=== PATIENT | male | born 2000 | race Caucasian/White ===

== ENCOUNTER 2019-05-02 17:54 | Inpatient (IN) ==
[2019-05-02 19:43] LABS: Basophils # (auto) 0.02 K/uL (0-0.2); Basophils % (auto) 0.2 %; Eosinophils # (auto) 0.02 K/uL (0-0.5); Eosinophils % (auto) 0.2 %; Hematocrit (blood only) 45.1 % (42-52); Hemoglobin 15.6 g/dL (14.0-18.0); Immature Granulocytes # (auto) 0.02 K/uL (0.00-0.02); Immature Granulocytes % (auto) 0.2 %; Lymphocytes # (auto) 1.39 K/uL (1.2-3.4); Lymphocytes % (auto) 14.8 %; Mean Corpuscular Hemoglobin 31.3 pg (25-34); Mean Corpuscular Hgb Conc 34.6 g/dL (32-36); Mean Corpuscular Volume 90.6 fL (80-100); Mean Platelet Volume 8.7 fL (7.4-10.4); Monocytes # (auto) 0.53 K/uL (0.11-0.59); Monocytes % (auto) 5.7 %; Neutrophils # (auto) 7.39 K/uL (1.4-6.5); Neutrophils % (auto) 78.9 %; Platelet Count 353 K/uL (130-400); RDW Coefficient of Variation 13.1 % (11.5-14.5); RDW Standard Deviation 43.1 fL (36.4-46.3); Red Blood Count 4.98 M/uL (4.7-6.1); White Blood Count 9.37 K/uL (4.8-10.8)
[2019-05-02 20:02] LABS: Appearance Urine Clear (Clear); Bacteria Urine Automated Negative (Negative); Bilirubin Urine Negative (Negative); Blood Urine Negative (Negative); Color Urine Dark Yellow; Epithelial Cell Urine Auto 0-5 /lpf (0-5); Glucose Urine UA Negative (Negative); Ketones Urine 2+ (Negative); Leukocyte Esterase Urine Trace (Negative); Nitrite Urine Negative (Negative); Protein Urine Negative (Negative); RBC Urine Automated 0-4 /hpf (0-4); Specific Gravity Urine 1.027 (1.000-1.030); Urobilinogen Urine Negative (Negative); pH Urine 5.5 (4.5-7.5)
[2019-05-02 20:03] LABS: Albumin Level 4.5 gm/dl (3.4-5.0); BUN Creatinine Ratio 15.3 (10-20); Creatinine Clr Calc Pharmacy 102.5 ml/min; Est GFR (African American) 115.2; Est GFR (Non-African American) 99.4; Potassium 3.9 mmol/L (3.5-5.1)
[2019-05-02 20:04] LABS: Acetaminophen < 2 ug/ml (10-30)
[2019-05-02 20:05] LABS: Salicylate < 1.7 mg/dl (2.8-20)
[2019-05-02 20:06] LABS: Amphetamines+Metham, Urine Neg (Neg); Barbiturates, Urine Neg (Neg); Benzodiazepine, Urine Neg (Neg); Cocaine, Urine Neg (Neg); MDMA (Ecstacy), Urine Neg (Neg); Methadone, Urine Neg (Neg); Opiate, Urine Neg (Neg); Phencyclidine, Urine Neg (Neg)
[2019-05-02 20:14] LABS: Albumin Globulin Ratio 1.1 (0.9-2); Bilirubin,Total 0.9 mg/dl (0.2-1); Globulin 4.2 gm/dl (2.5-4.0); Thyroid Stimulating Hormone 0.789 uIu/ml (0.300-4.500); Total Protein 8.7 gm/dl (6.4-8.2)
--- NOTE | 2019-05-02 21:23 | Emergency Department Note ---
Entered by Josiane Bhatt acting as a scribe for Joseph Briggs MD History of Present Illness General Chief complaint: Mental Health Evaluation Stated complaint: MENTAL HEALTH EVALUATION Time Seen by Provider: 05/02/19 18:23 Source: patient and other ([facility]) History of Present Illness Onset (ago): day(s) 2 Location: head (mental health evaluation ) Associated symptoms: + denies other symptoms (diarrhea) and + other (auditory hallucinations, increased anxiety and depression recently, SI, weight loss, feeling hopeless); no cough, no fever/chills and no nausea/vomiting The patient is a 19 year old male who presents to the Emergency Room for a mental health evaluation. The patient was sent here from [facility] today. They state the last time he was seen there was in July 2018 for ADHD. [facility] reports that today the patient was seen for auditory hallucinations and SI (passive) with no intent or plan. The patient reports auditory hallucinations that began 2 days ago and explains that he only hears them when he feels anxious or depressed. He reports feeling more anxious and depressed for the past few days. These voices are those of his roommates and fraternity brothers and he explains that he does not hear them when he feels happy. He also notes that he has a good relationship with his roommates and fraternity brothers and that they are always there to help him with his struggles. Additionally, 1 day ago he reports that he had a panic attack and that the voices of his frat brothers in his head told him to go to the [employer] and "defeat a super villain". At times he states that these voices tell him he is worthless. He also reports a recent hallucination of hearing his roommate whispering about him stating that he should kill himself. Of note, [facility] reports that the patient has been using marijuana and drinking alcohol daily up until about 6 days ago. He has since only been using CBD oil to sleep. The patient it also not on any medications for depression or anxiety. He is here voluntary and [facility] recommends to keep him as a n inpatient. The patient states that he feels hopeless and wants to get help. He states that he does not currently have SI thoughts. Of note, he also reports recent weight loss due to his depression. He denies fever, cough, nausea, vomiting, and diarrhea. The patient offers no additional concerns at this time. Home Medications Home Medications Medication Instructions Recorded Confirmed Type Cbd Oil 1 applic TOPICAL DAILY 05/02/19 05/02/19 History Allergies Allergy/AdvReac Type Severity Reaction Status Date / Time maple syrup Allergy Hives Uncoded 05/02/19 20:03 Past Med/Surg History Medical History Concussion No pertinent past medical history Surgical History No history of previous surgery Family History Family/Other No problems noted. Social History Preferred Language: Lithuanian Communication Ability: Effective Senior Strategy Manager Required: No Beliefs That Will Affect Care: None Feels Safe at Home: Yes Smoking Status: Current some day smoker Tobacco Type: cigarettes ; Review of Systems See HPI for pertinent positives & negatives. and A total of 10 systems reviewed and were otherwise negative Physical Exam Vital Signs Vital Signs - 24 hr 05/02/19 18:02 05/02/19 20:02 Temperature 36.8 C Temperature Source Oral Pulse Rate 79 Pulse Rate [Right Finger] 79 Respiratory Rate 20 20 Respiratory Depth Normal Blood Pressure 132/87 Blood Pressure [Right Arm] 133/87 Blood Pressure Mean 102 Blood Pressure Mean [Right Arm] 102 Blood Pressure Position Sitting Blood Pressure Position [Right Arm] Sitting Pulse Oximetry 99 98 Oxygen Delivery Method Room Air Sepsis Recent Fever Within 48 Hours No Sepsis Action Taken by Nursing No Action Required GENERAL: Awake, alert, well-appearing, in no distress HENT: Normocephalic, atraumatic. Oropharynx unremarkable. Mucous membranes moist. EYES: Normal conjunctiva. Sclera non-icteric. NECK: Supple. No nuchal rigidity. FROM. No JVD. RESPIRATORY: Scant intermittent wheeze, otherwise clear. CARDIAC: Regular rate, normal rhythm. Extremities warm and well perfused. Pulses equal. ABDOMEN: Soft, non-distended. No tenderness to palpation. No rebound or gua rding. No masses. RECTAL: Deferred. MUSCULOSKELETAL: Chest examination reveals no tenderness. The back is symmetrical on inspection without obvious abnormality. There is no CVA tenderness to palpation. No joint edema. LOWER EXTREMITIES: Calves are equal size bilaterally and non-tender. No edema. No discoloration. NEURO: Normal sensorium. No sensory or motor deficits noted. SKIN: No rash or jaundice noted. PSYCH: Positive auditory hallucinations. Sometimes command hallucinations. Intermittent SI. Positive marijuana use. Course Course 1850: Past medical records reviewed. The patient was evaluated in room A03. A complete history and physical exam was performed. 0030: The patient was admitted to [facility]. The patient verbally expressed understanding and agreement of the treatment plan. The patient will be evaluated for further treatment. Administered Medications Hydroxyzine HCl (Vistaril) 50 mg PO HSZ PRN PRN Reason: Insomnia Stop: 06/01/19 22:23 Last Admin: 05/04/19 01:37 Dose: 50 mg Documented by: [id number] Admin: 05/03/19 00:59 Dose: 50 mg Documented by: [id number] Admin: 05/02/19 23:34 Dose: 50 mg Documented by: [id number] Nicotine Polacrilex (Nicorette 2mg) 1 piece MT PRN PRN PRN Reason: cravings Stop: 06/02/19 17:06 Last Admin: 05/03/19 17:44 Dose: 1 piece Documented by: [id number] Risperidone (Risperdal) 0.5 mg PO HS TANK Stop: 06/02/19 21:59 Last Admin: 05/03/19 21:01 Dose: 0.5 mg Documented by: [id number] Risperidone (Risperdal) 0.5 mg PO BID PRN PRN Reason: agitation or psychosis Stop: 06/02/19 10:29 Last Admin: 05/03/19 16:09 Dose: 0.5 mg Documented by: [id number] Discontinued Medications Sertraline HCl (Zoloft) 25 mg PO NOW ONE Stop: 05/03/19 10:26 Last Admin: 05/03/19 11:54 Dose: 25 mg Documented by: [id number] Medical Decision Making Differential Diagnosis Differential diagnosis includes but is not limited to etiologies such as mood disorder, infection, hypoglycemia, electrolyte abnormalities, cardiac sources, intracerebral event, toxicologic, neurologic, as well as others were entertained. Medical Records Attestation: I reviewed the patient's medical records. Home Medications Current Medication List: was personally reviewed by me Laboratory Data Attestation: I reviewed the patient's lab results. Result diagrams: 05/02/19 19:29 05/02/19 19:29 Lab Results 05/02/19 05/02/19 05/02/19 Range/Units 18:20 18:20 19:29 WBC 9.37 (4.8-10.8) K/uL RBC 4.98 (4.7-6.1) M/uL Hgb 15.6 (14.0-18.0) g/dL Hct 45.1 (42-52) % MCV 90.6 (80-100) fL MCH 31.3 (25-34) pg MCHC 34.6 (32-36) g/dL RDW Std Deviation 43.1 (36.4-46.3) fL RDW Coeff of Yara 13.1 (11.5-14.5) % Plt Count 353 (130-400) K/uL MPV 8.7 (7.4-10.4) fL Immature Gran % (Auto) 0.2 % Neut % (Auto) 78.9 % Lymph % (Auto) 14.8 % [place] % (Auto) 5.7 % Eos % (Auto) 0.2 % Baso % (Auto) 0.2 % Immature Gran # (Auto) 0.02 (0.00-0.02) K/uL Neut # (Auto) 7.39 H (1.4-6.5) K/uL Lymph # (Auto) 1.39 (1.2-3.4) K/uL [place] # (Auto) 0.53 (0.11-0.59) K/uL Eos # (Auto) 0.02 (0-0.5) K/uL Baso # (Auto) 0.02 (0-0.2) K/uL Sodium (136-145) mmol/L Potassium (3.5-5.1) mmol/L Chloride (98-107) mmol/L Carbon Dioxide (21-32) mmol/L Anion Gap (3-11) BUN (7-18) mg/dl Creatinine (0.6-1.4) mg/dl Est Cr Clr Drug Dosing ml/min Est GFR ( Amer) Est GFR (Non-Af Amer) BUN/Creatinine Ratio (10-20) Glucose (70-99) mg/dl Calcium (8.5-10.1) mg/dl Total Bilirubin (0.2-1) mg/dl AST (15-37) U/L ALT (12-78) U/L Alkaline Phosphatase (45-117) U/L Total Protein (6.4-8.2) gm/dl Albumin (3.4-5.0) gm/dl Globulin (2.5-4.0) gm/dl Albumin/Globulin Ratio (0.9-2) TSH (0.300-4.500) uIu/ml Urine Color Dark Yellow Urine Appearance Clear (Clear) Urine pH 5.5 (4.5-7.5) Ur Specific [place] 1.027 (1.000-1.030) Urine Protein Negative (Negative) Urine Glucose (UA) Negative (Negative) Urine Ketones 2+ H (Negative) Urine Blood Negative (Negative) Urine Nitrite Negative (Negative) Urine Bilirubin Negative (Negative) Urine Urobilinogen Negative (Negative) Ur Leukocyte Esterase Trace H (Negative) Urine WBC (Auto) 1-5 (0-5) /hpf Urine RBC (Auto) 0-4 (0-4) /hpf U Hyaline Cast (Auto) 1-5 (0-5) /lpf U Epithel Cells (Auto) 0-5 (0-5) /lpf Urine Bacteria (Auto) Negative (Negative) Salicylates (2.8-20) mg/dl Urine Opiates Screen Neg (Neg) Ur Methadone, Qual Neg (Neg) Acetaminophen (10-30) ug/ml Urine Barbiturates Neg (Neg) Ur Phencyclidine (PCP) Neg (Neg) U Amphetamin/Meth Scrn Neg (Neg) MDMA (Ecstasy) Screen Neg (Neg) U Benzodiazepines Scrn Neg (Neg) Ur Cocaine Metabolite Neg (Neg) U Marijuana (THC) Screen Pos H (Neg) Ethyl Alcohol mg/dL (0-3) mg/dl 05/02/19 05/02/19 05/02/19 Range/Units 19:29 19:29 19:29 WBC (4.8-10.8) K/uL RBC (4.7-6.1) M/uL Hgb (14.0-18.0) g/dL Hct (42-52) % MCV (80-100) fL MCH (25-34) pg MCHC (32-36) g/dL RDW Std Deviation (36.4-46.3) fL RDW Coeff of Yara (11.5-14.5) % Plt Count (130-400) K/uL MPV (7.4-10.4) fL Immature Gran % (Auto) % Neut % (Auto) % Lymph % (Auto) % [place] % (Auto) % Eos % (Auto) % Baso % (Auto) % Immature Gran # (Auto) (0.00-0.02) K/uL Neut # (Auto) (1.4-6.5) K/uL Lymph # (Auto) (1.2-3.4) K/uL [place] # (Auto) (0.11-0.59) K/uL Eos # (Auto) (0-0.5) K/uL Baso # (Auto) (0-0.2) K/uL Sodium 137 (136-145) mmol/L Potassium 3.9 (3.5-5.1) mmol/L Chloride 104 (98-107) mmol/L Carbon Dioxide 26 (21-32) mmol/L Anion Gap 7.0 (3-11) BUN 16 (7-18) mg/dl Creatinine 1.07 (0.6-1.4) mg/dl Est Cr Clr Drug Dosing 102.5 ml/min Est GFR ( Amer) 115.2 Est GFR (Non-Af Amer) 99.4 BUN/Creatinine Ratio 15.3 (10-20) Glucose 94 (70-99) mg/dl Calcium 10.0 (8.5-10.1) mg/dl Total Bilirubin 0.9 (0.2-1) mg/dl AST 21 (15-37) U/L ALT 37 (12-78) U/L Alkaline Phosphatase 78 (45-117) U/L Total Protein 8.7 H (6.4-8.2) gm/dl Albumin 4.5 (3.4-5.0) gm/dl Globulin 4.2 H (2.5-4.0) gm/dl Albumin/Globulin Ratio 1.1 (0.9-2) TSH 0.789 (0.300-4.500) uIu/ml Urine Color Urine Appearance (Clear) Urine pH (4.5-7.5) Ur Specific [place] (1.000-1.030) Urine Protein (Negative) Urine Glucose (UA) (Negative) Urine Ketones (Negative) Urine Blood (Negative) Urine Nitrite (Negative) Urine Bilirubin (Negative) Urine Urobilinogen (Negative) Ur Leukocyte Esterase (Negative) Urine WBC (Auto) (0-5) /hpf Urine RBC (Auto) (0-4) /hpf U Hyaline Cast (Auto) (0-5) /lpf U Epithel Cells (Auto) (0-5) /lpf Urine Bacteria (Auto) (Negative) Salicylates < 1.7 L (2.8-20) mg/dl Urine Opiates Screen (Neg) Ur Methadone, Qual (Neg) Acetaminophen < 2 L (10-30) ug/ml Urine Barbiturates (Neg) Ur Phencyclidine (PCP) (Neg) U Amphetamin/Meth Scrn (Neg) MDMA (Ecstasy) Screen (Neg) U Benzodiazepines Scrn (Neg) Ur Cocaine Metabolite (Neg) U Marijuana (THC) Screen (Neg) Ethyl Alcohol mg/dL < 3.0 (0-3) mg/dl Blood Pressure Blood Pressure Findings: Elevated blood pressure Blood Pressure Disposition: elevated BP felt to be situational MDM Narrative The patient is a pleasant 19-year-old gentleman presents emergency department referred from [facility] on campus for auditory hallucinations which have been new over the past several days in the setting of marijuana use per HPI. On arrival the patient is in no acute distress, afebrile stable vital signs. The patient reports feeling increasingly anxious and depressed recently and reports when he is feeling most down then he hears the voices which have told him to hurt himself and have disparaged him. He is willing for voluntary admission. His mother is traveling from [facility]. WBC, H/H and platelets within normal limits. Chemistry without acidosis. Electrolytes and LFTs unremarkable. TSH within normal limits. UA negative for infection. Drug screen is positive for marijuana consistent with the patient's report of use marijuana use. Patient is medically cleared. Will proceed with referral for inpatient admission. Patient accepted to . 201 signed. Impression & Plan Anxiety, Depression, Auditory hallucinations, Suicide ideation Discharge Plan Visit Data *Final* Discharge Date/Time: 05/02/19 22:47 Chief Complaint: Mental Health Evaluation Stated Complaint: MENTAL HEALTH EVALUATION ED Provider: Joseph Briggs Discharge Problem: Anxiety, Depression, Auditory hallucinations, Suicide ideation Patient Disposition: Admitted As Inpatient Discharge Instructions Interventions: ED Discharge Assessment Last Done: 05/02/19 22:47 Discharge Problem: Depression Qualifiers: Depression Type: unspecified Qualified Code(s): F32.9 - Major depressive disorder, single episode, unspecified The scribe's documentation has been prepared under my direction and personally reviewed by me in its entirety. I confirm that the note above accurately reflects all work, treatment, procedures, and medical decision making performed by me.
[2019-05-02] MEDS ORDERED: ACETAMINOPHEN 325 MG TAB PO PRN (22:24)
[2019-05-02] MEDS ORDERED: BISMUTH SUBSALICYLATE PER ML OMNICELL CHARGE PO PRN (22:24)
[2019-05-02] MEDS ORDERED: MAGNESIUM HYDROXIDE SUSP 30 ML UDC PO PRN (22:24)
[2019-05-02] MEDS ORDERED: SODIUM CHLORIDE 0.65% NA SOLN 45 ML (OCEAN) PRN (22:24)
[2019-05-02] MEDS ORDERED: ALUMINUM/MAGNESIUM SUSP 30 ML UDC PO PRN (22:24)
[2019-05-03] MEDS ORDERED: risperiDONE 0.5 MG TABLET PO PRN (10:25)
[2019-05-03] MEDS ORDERED: SERTRALINE HCL 50 MG TABLET PO ONE (10:25)
--- NOTE | 2019-05-03 10:33 | History & Physical ---
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 He is distressed by these thoughts and has quite a bit of intact reality testing and yet feels scared that they have worsened over the prior 2 days. He does have concurrent binge drinking I do not believe he is at risk for significant withdrawal but will put him on every shift vitals for sake of completeness. He declines nicotine replacement at this time as he does not smoke consistently. We did discuss his marijuana use that the THC could worsen his thought confusion and we recommended that he abstain. He is open to discussion of behavioral health treatment to include therapy medications in combination. At the time of my seeing him this morning he was not able to reliably report if there were evidence of elevated or mixed states denying obvious episodes however he does have a father with bipolar disorder and so we will need to monitor as we treat. I will start a combination of medications sertraline 25 mg today advancing to 50 mg p.o. daily thereafter to target depression and anxiety that are longstanding. Further I will start Risperdal 0.5 mg p.o. nightly tonight with 0.5 p.o. twice daily as needed agitation or psychosis.I discussed the risks benefits side effects and alternatives with the patient today who did seem to be able to appreciate this information and stated he understood the need to watch for activation with the sertraline and that the goal would be to try these medicines and see how he does and if he has side effects that they can be adjusted. He clarified "my dad has had to try many medications until he found what worked and I am willing to do what it takes to feel better." (1) Anxiety: (2) Depression: Depression Type: unspecified Qualified Code(s): F32.9 - Major depressive disorder, single episode, unspecified Risk Factors Assessment Male: Yes Do You Have Access To A Gun?: No Health Problems: No Mental Health Diagnoses: Yes Substance Use Disorders: Yes Previous Attempt: No Family History of Suicide: Yes Previous Psychiatric Hospitalization: No Hopelessness: Yes Smoker: Yes Protective Factors Assessment Holiness Beliefs: No : No Responsible for Young Children: No Employed: No Supportive Family: Yes Psychiatric History Identifying Data JAY JAY KESSLER is a 19-year-old M who is a sophopmore Communications major at [employer] who lives in an off campus apartments with roommates who reports a h/o anxiety and depression who was admitted for reporting distress with Auditory hallucinations from frat brothers, and delusional beleif he is a superhero needing to fight villians in the last few days on top of longstanding depression and anxiety, and passive SI. He was admitted on 05/02/19 22:24 on a 201 voluntarycommitment. Chief Complaint "I knew something was wrong and I was scared". History of Present Illness The patient is a 19-year-old single white male who was a [employer] student in [employer] who is presently in his third semester. He presented to counseling and psychological services on May 02, 2018 reporting both auditory hallucinations and delusional belief prompting the recommendation that he come to the emergency room and he was agreeable after evaluation in the ER for admission. This history is taken collectively from the documented ER history, case management history, discussion with behavioral health nursing and interview with the patient today on the inpatient unit. He states he has a lifelong history of anxiety and depression that I "never opened up to anybody about." He states he has significant social anxiety and when he is talking with people his heart will flutter he will flush have sweating and a sense of impending doom and this is been going on for some time. 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 However he endured social interactions with great distress. He states he has always been somebody to worry and ask a lot of questions and seek reassurance that he is doing things right. He states he worries about future and feels his "life collapsed" recently. He has difficulty being sustained about what he means but agrees it has to do with the symptoms reported below. In addition to this longstanding anxiety he states he began to have depression probably around the first semester of his college career which was fall 2017. He states that he did poorly in his classes and was just "enjoying things such as videogames going to parties and doing the things he liked." He did very poorly his first semester and believes he started to feel lower. He came back to [facility] in spring 2018 and presented to counseling and psychological services for evaluation of ADHD. He was referred to testing and saw a psychiatrist (name unknown possibly Dr. Veliz) in the [place] area and was diagnosed instead with anxiety and depression. He states he was recommended to follow-up with a therapist with the she did for a few sessions "but it was not helpful, probably because I did not open up." He states he returned to [employer] te Fall 2018 and pledged to fraternity and states "it was the best thing I ever did." He states however though he is also simultaneously has been depressed. He reports over the last year and a half difficulty falling asleep at night not able to fall asleep will often watch 1-2 movies and fell asleep for some time in the late morning and then have trouble rising. He cannot quantify the degree of sleep but states that 6 hours or less. He denies being energized or having grandiosity or flight of ideas or loosening of associations he denies being more social or more talkative or having impulsive behavior such as increased sexuality or increased spending. He does state that at times he feels tired and poor concentration low appetite, hopeless helpless and worthless and has had passive suicidal ideations such as "what would people think if I was ." He notes over the last semester he has lost significant weight, and that in thelast 2 weeks he has not been doing his laundry, and feels even more disorganized that his usual self. He states during his college career he has been binge drinking somewhere between 1-2 nights on an average week up to 3 nights now that he is joined a fraternity where he will binge drink 8+ beers per occasion and has blacked out quite commonly. He does not have any legal or social ramifications that he knows of but today is penitent stating "I know I does not help me." He additionally endorses marijuana use starting in high school and increasing to daily use while in college. His mother found out in fall 2017 and he stopped MJ for 4 months and then resumed. He has been smoking multiple times a day over the last month prior to admission "it is the only thing that helps me." In discussing his thoughts he reports that in the last few weeks he has heard some mumbling which he thoughts was outside and has been vaguely aware of what he now realizes are voices in his mind. In the last 2 days these have escalated to feeling like his roommates and fraternity brothers may be hearing his thoughts and that he may know their thoughts. They have been saying things like "defeat the super villain" and this makes him feel anxious. He states that he believes his roommate may have said in a whisper to kill himself. And yesterday believed that he was a superhero fighting villians and was told to go to a specific room in the fraternity and then was scared realizing on some level that this was not true. He presented to [facility] for help. He states last night he thought he heard the nurse tell another nurse that he is a superhero and "how will we tell him," and yet is able to reality test that "I know that these are not true thoughts" denying beleif that he is a superhero. He has some "whispers" today of AH, but denies other IOR, TI/TB or command hallucinations. He is voluntary to take medications, release prior records and even asserts that perhaps getting further medication history from his father (who has bipolar) may help the patient and staff know what best to use in treatment. He denies SI/HI, intention or plan here on the unit but states he still feels scared and distressed that this has happened to him and he is worried about what this maight mean regarding diagnosis. Remainder of Psych ROS: denies violence toward self or others now or in the past denies s/sx of OCD, agoraphobia. denies h/o trauma or s/sx of PTSD denies s/sx of ODD, or CD, did have discplinary issues in school for disruptive behavior in pre-school and onward e.g. talking out of turn, and reports lonstanding being disorganized with his things which frustrates his relationship wtih his mother who is highly organized he denies s/sx of eating disorder behavior. Past Psychiatric History Previous Psych History: [facility] 07/2017 inquiring about ADHD, referred to psychiatrist Dr Martin? in [facility] area was dx as anxiety and depression referred to therapy went for a few sessions but "did not open up to them" and so of little help No prior hospitatalizations, no SA, no SIB, no medications Current Psychiatric Diagnosis: No prior mental health diagnosis Do You Have Access To A Gun?: No Describe Attempts in the Past: No prior attempts Past Head Trauma/Neuro History History of Concussion/Seizure: Yes sophomore year of HS in baseball, no LOC, but was dazed and went to some sort of "rehab" for post concussion, denies other head injuries, no seizures Allergies Allergy/AdvReac Type Severity Reaction Status Date / Time maple syrup Allergy Hives Uncoded 05/02/19 20:03 Home Medications Home Medications Medication Instructions Recorded Confirmed Type Cbd Oil 1 applic TOPICAL DAILY 05/02/19 05/02/19 History Family History Family History of: Bipolar Family Mental Health History Comment: Patient reports father has bipolar and h/o nicotine Dep 1/2 brother has opiate addiction paternal cousin completed suicide (not well known to patient) Alcohol History Hx of Alcohol Use Over the Past 12 Months: Yes (stopped drinking alcohol 6 days ago) AUDIT Total Score: 13 binge drinking 1-3 nights a week during semesters at [employer] Fall 2017 to present, 8+ drinks, + LION, denies legal or social consequences, no h/o withdrawal Smoking Use Have You Smoked or Used Tobacco Products in the Last 30 Days: Yes tobacco type: cigarettes Smoking Status: Current some day smoker Substance History Hx of Prescription Med Misuse Over the Past 12 Months: No Hx of Over the Counter Med Misuse Over the Past 12 Months: Yes (using CBD recently in addition to MJ, last use 05/01/19) Hx of Inhalent Misuse Over the Past 12 Months: No Hx of Organic Substance Use Over the Past 12 Months: Yes (Marijuana - last use 24 hours ago. daily for 6+ months, using 2 years,) Hx of Illegal Substances/Street Drug Use Over Past 12 Months: No Problems as a Result of Past Substance Use: None Identified Personal History Living Arrangements: Apartment (with college roommates) Childhood: B/R to intact union, he has half siblings brother and sister who are older. He lived with mother and father until 8yo when they . Lived with mother with frequent visitation with Dad. Good relationship with Dad, fair relationship with mother meaning she is supportive but they have adult child transitional tensions as they disagree about his decisions at times. He graduated HS in 2018 states at times he would cheat copying homework on cheat on tests and did fair to good in school. He then did poorly at [employer] first semester did not do his school work and did social/recreational things. Did a little better Spring 2018 but still not great. Fall 2017 he states he is doing "poorly" getting 2 B minueses, 1 C, and 1 F. He identifies as straight but is sad that although he wishes for a relationship "it has never worked out for me." Beliefs That Will Affect Care: None Current Legal Problems: No Hx Legal Problems: No Hx Traumatic Life Events: No Patient History Medical History (Updated 05/03/19 @ 10:52 by Renae Hoffmann MD) Concussion No pertinent past medical history Surgical History No history of previous surgery Family History Family/Other No problems noted. Social History Preferred Language: Ethiopian Communication Ability: Effective Artist Scientific Required: No Beliefs That Will Affect Care: None Feels Safe at Home: Yes Smoking Status: Current some day smoker Tobacco Type: cigarettes ; Review of Systems Review of Systems: Denies physical symptoms on 10 system ROS Physical Exam Mental Examination: See physical exam from Dr Genevieve Briggs on 05/02/18 that has been reviewed and is accepted for the purposes of this H&P Admission Note. Psychiatric: Orientation: alert and oriented x 3 woken from sleep, sits in bed in hospital clothes hair is dissheveled but he appears clean, and he is not behind on hygiene (e.g. no facial hair, nails are not long, no odor, etc) Eye Contact: good eye contact Motor Behavior: no abnormal motor movements he does put his face in his hands at times and gesture when sharing how nervous and poorly he has felt the last few days, earnest in communicating Speech: normal rate/rhythm/volume of speech not pressured Affect: + anxious affect and + blunted affect Mood: + anxious mood Thought Process: goal directed thought process and linear/logical thought process he is able to reality test but reports ongoing AH today that are less than what he was experieing in the 2 days prior to admission He denies feeling paranoid here, although he had IOR, TI/TB he denies that now and denies command hallucinations passive SI Hallucinations: + auditory hallucinations; no visual hallucinations and no tactile hallucinations Cognition: recent memory grossly intact Estimated Intelligence: average estimated intelligence Vital Signs (Past 24 Hours): Last Vital Signs Temp 36.5 C 05/03/19 06:45 Pulse 67 05/03/19 06:47 Resp 16 05/03/19 06:45 BP 121/80 05/03/19 06:47 Pulse Ox 99 05/02/19 22:39 Results & Data Laboratory Results Laboratory Results - last 24 hr 05/02/19 05/02/19 05/02/19 18:20 18:20 18:20 WBC RBC Hgb Hct MCV MCH MCHC RDW Std Deviation RDW Coeff of Yara Plt Count MPV Immature Gran % (Auto) Neut % (Auto) Lymph % (Auto) [place] % (Auto) Eos % (Auto) Baso % (Auto) Immature Gran # (Auto) Neut # (Auto) Lymph # (Auto) [place] # (Auto) Eos # (Auto) Baso # (Auto) Sodium Potassium Chloride Carbon Dioxide Anion Gap BUN Creatinine Est Cr Clr Drug Dosing Est GFR ( Amer) Est GFR (Non-Af Amer) BUN/Creatinine Ratio Glucose Calcium Total Bilirubin AST ALT Alkaline Phosphatase Total Protein Albumin Globulin Albumin/Globulin Ratio TSH Urine Color Dark Yellow Urine Appearance Clear Urine pH 5.5 Ur Specific [place] 1.027 Urine Protein Negative Urine Glucose (UA) Negative Urine Ketones 2+ H Urine Blood Negative Urine Nitrite Negative Urine Bilirubin Negative Urine Urobilinogen Negative Ur Leukocyte Esterase Trace H Urine WBC (Auto) 1-5 Urine RBC (Auto) 0-4 U Hyaline Cast (Auto) 1-5 U Epithel Cells (Auto) 0-5 Urine Bacteria (Auto) Negative Salicylates Urine Opiates Screen Neg Ur Methadone, Qual Neg Acetaminophen Urine Barbiturates Neg Ur Phencyclidine (PCP) Neg U Amphetamin/Meth Scrn Neg MDMA (Ecstasy) Screen Neg U Benzodiazepines Scrn Neg Ur Cocaine Metabolite Neg U Marijuana (THC) Screen Pos H U Marijuana THC Carboxy Pending Drug Screen Comment Pending Ethyl Alcohol mg/dL 05/02/19 05/02/19 05/02/19 19:29 19:29 19:29 WBC 9.37 RBC 4.98 Hgb 15.6 Hct 45.1 MCV 90.6 MCH 31.3 MCHC 34.6 RDW Std Deviation 43.1 RDW Coeff of Yara 13.1 Plt Count 353 MPV 8.7 Immature Gran % (Auto) 0.2 Neut % (Auto) 78.9 Lymph % (Auto) 14.8 [place] % (Auto) 5.7 Eos % (Auto) 0.2 Baso % (Auto) 0.2 Immature Gran # (Auto) 0.02 Neut # (Auto) 7.39 H Lymph # (Auto) 1.39 [place] # (Auto) 0.53 Eos # (Auto) 0.02 Baso # (Auto) 0.02 Sodium 137 Potassium 3.9 Chloride 104 Carbon Dioxide 26 Anion Gap 7.0 BUN 16 Creatinine 1.07 Est Cr Clr Drug Dosing 102.5 Est GFR ( Amer) 115.2 Est GFR (Non-Af Amer) 99.4 BUN/Creatinine Ratio 15.3 Glucose 94 Calcium 10.0 Total Bilirubin 0.9 AST 21 ALT 37 Alkaline Phosphatase 78 Total Protein 8.7 H Albumin 4.5 Globulin 4.2 H Albumin/Globulin Ratio 1.1 TSH 0.789 Urine Color Urine Appearance Urine pH Ur Specific [place] Urine Protein Urine Glucose (UA) Urine Ketones Urine Blood Urine Nitrite Urine Bilirubin Urine Urobilinogen Ur Leukocyte Esterase Urine WBC (Auto) Urine RBC (Auto) U Hyaline Cast (Auto) U Epithel Cells (Auto) Urine Bacteria (Auto) Salicylates < 1.7 L Urine Opiates Screen Ur Methadone, Qual Acetaminophen < 2 L Urine Barbiturates Ur Phencyclidine (PCP) U Amphetamin/Meth Scrn MDMA (Ecstasy) Screen U Benzodiazepines Scrn Ur Cocaine Metabolite U Marijuana (THC) Screen U Marijuana THC Carboxy Drug Screen Comment Ethyl Alcohol mg/dL 05/02/19 19:29 WBC RBC Hgb Hct MCV MCH MCHC RDW Std Deviation RDW Coeff of Yara Plt Count MPV Immature Gran % (Auto) Neut % (Auto) Lymph % (Auto) [place] % (Auto) Eos % (Auto) Baso % (Auto) Immature Gran # (Auto) Neut # (Auto) Lymph # (Auto) [place] # (Auto) Eos # (Auto) Baso # (Auto) Sodium Potassium Chloride Carbon Dioxide Anion Gap BUN Creatinine Est Cr Clr Drug Dosing Est GFR ( Amer) Est GFR (Non-Af Amer) BUN/Creatinine Ratio Glucose Calcium Total Bilirubin AST ALT Alkaline Phosphatase Total Protein Albumin Globulin Albumin/Globulin Ratio TSH Urine Color Urine Appearance Urine pH Ur Specific [place] Urine Protein Urine Glucose (UA) Urine Ketones Urine Blood Urine Nitrite Urine Bilirubin Urine Urobilinogen Ur Leukocyte Esterase Urine WBC (Auto) Urine RBC (Auto) U Hyaline Cast (Auto) U Epithel Cells (Auto) Urine Bacteria (Auto) Salicylates Urine Opiates Screen Ur Methadone, Qual Acetaminophen Urine Barbiturates Ur Phencyclidine (PCP) U Amphetamin/Meth Scrn MDMA (Ecstasy) Screen U Benzodiazepines Scrn Ur Cocaine Metabolite U Marijuana (THC) Screen U Marijuana THC Carboxy Drug Screen Comment Ethyl Alcohol mg/dL < 3.0 Current Inpatient Medications Current Inpatient Medications: Current Inpatient Medications Acetaminophen (Tylenol) 650 mg PO Q4H PRN PRN Reason: Headache or Minor Fever Stop: 06/01/19 22:23 Al Hydrox/Mg Hydrox/Simethicone (Maalox) 30 ml PO Q4H PRN PRN Reason: GI Upset Stop: 06/01/19 22:23 Bismuth Subsalicylate (Kaopectate) 15 ml PO PRN PRN PRN Reason: Loose Stool Stop: 06/01/19 22:23 Hydroxyzine HCl (Vistaril) 50 mg PO HSZ PRN PRN Reason: Insomnia Stop: 06/01/19 22:23 Last Admin: 05/03/19 00:59 Dose: 50 mg Documented by: Hydroxyzine HCl (Vistaril) 25 mg PO Q4H PRN PRN Reason: Anxiety Stop: 06/01/19 22:23 Magnesium Hydroxide (Milk Of Magnesia) 30 ml PO DAILY PRN PRN Reason: Constipation Stop: 06/01/19 22:23 Risperidone (Risperdal) 0.5 mg PO HS TANK Stop: 06/02/19 21:59 Risperidone (Risperdal) 0.5 mg PO BID PRN PRN Reason: agitation or psychosis Stop: 06/02/19 10:29 Sertraline HCl (Zoloft) 50 mg PO QAM TANK Stop: 06/03/19 08:59 Sertraline HCl (Zoloft) 25 mg PO NOW ONE Stop: 05/03/19 10:26 Sodium Chloride ([place] Nasal) 1 - 2 sprays NA PRN PRN PRN Reason: Nasal Dryness/Congestion Stop: 06/01/19 22:23
[2019-05-03] MEDS: NICOTINE POLACRILEX 2 MG GUM MT PRN (17:44)
[2019-05-03] MEDS ORDERED: risperiDONE 0.5 MG TABLET PO SCH (22:00)
--- NOTE | 2019-05-04 07:21 | Psychiatric Progress Note ---
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 He also reported binge drinking and regular THC use. He is open to discussion of behavioral health treatment to include therapy medications in combination. He did not endorse evidence of elevated or mixed states, however he does have a father with bipolar disorder and so we will need to monitor as we treat. He has been started on sertraline and risperidone. He has not yet been able to tolerate groups or a family meeting, but is improving and approaching that point in his treatment. Inpatient treatment is medically necessary due to the severity of his symptoms. (1) Depression: 05/03 - presents for combination of anxiety, depression, and psychotic symptoms to include auditory hallucinations ideas of reference, thought insertion and thought broadcasting with belief that he has a superhero and fighting villains. He is distressed by these thoughts and has quite a bit of intact reality testing and yet feels scared that they have worsened over the prior 2 days. He does have concurrent binge drinking I do not believe he is at risk for significant withdrawal but will put him on every shift vitals for sake of completeness. He declines nicotine replacement at this time as he does not smoke consistently. We did discuss his marijuana use that the THC could worsen his thought confusion and we recommended that he abstain. He is open to discussion of behavioral health treatment to include therapy medications in combination. At the time of my seeing him this morning he was not able to reliably report if there were evidence of elevated or mixed states denying obvious episodes however he does have a father with bipolar disorder and so we will need to monitor as we treat. I will start a combination of medications sertraline 25 mg today advancing to 50 mg p.o. daily thereafter to target depression and anxiety that are longstanding. Further I will start Risperdal 0.5 mg p.o. nightly tonight with 0.5 p.o. twice daily as needed agitation or psychosis.I discussed the risks, benefits, side effects and alternatives with the patient today who did seem to be able to appreciate this information and stated he understood the need to watch for activation with the sertraline and that the goal would be to try these medicines and see how he does and if he has side effects that they can be adjusted. He clarified "my dad has had to try many medications until he found what worked and I am willing to do what it takes to feel better." 05/04 - Requiring risperidone prn, still psychotic, restless, and agitated. Will increase risperidone to 1mg bid, and order fasting labs for tomorrow. -May attend groups once able to participate appropriately. -Explore family meeting. Present on Admission?: Yes (2) Anxiety: 05/03 - SSRI as above, groups and therapy, refer for OP care. Present on Admission?: Yes (3) Cannabis abuse: 05/03 - Discussed marijuana use and that the THC could worsen his thought confusion and we recommended that he abstain. He is open to discussion of behavioral health treatment to include therapy and medications in combination. 05/04 -discussed risks of alcohol and THC use at length, including unmasking psychotic symptoms/primary thought disorder with use of hallucinogens. Reviewed recommendations for abstinence, which patient is stating agreement with. Present on Admission?: Yes Risk Factors Assessment Male: Yes Do You Have Access To A Gun?: No Health Problems: No Mental Health Diagnoses: Yes Substance Use Disorders: Yes Previous Attempt: No Family History of Suicide: Yes Previous Psychiatric Hospitalization: No Hopelessness: Yes Smoker: Yes Protective Factors Assessment [employer] Beliefs: No : No Responsible for Young Children: No Employed: No Supportive Family: Yes Interval History Identifying Information JAY JAY KESSLER is a 19-year-old M who is a sophomore Communications major at [employer] who lives in an off campus apartments with roommates who reports a h/o anxiety and depression who was admitted for reporting distress with Auditory hallucinations from frat brothers, and delusional belief he is a superhero needing to fight villains on top of longstanding depression and anxiety, and passive SI. He was admitted on 05/02/19 22:24 on a 201 voluntary commitment. Chief Complaint "Great". Review of Systems Sleep Information Total Hours of Sleep: 5.5 Meal Information Percent Meal Consumed - Breakfast: 0 Percent Meal Consumed - Lunch: 100 Percent Meal Consumed - Dinner: 80 Nutrition Comment: pt. allowed to sleep. Subjective Subjective Patient was seen & assessed and interval progress reviewed with nursing and social work. Staff report he required risperidone prn for agitation, restlessne ss, and racing thoughts. His mother and aunt visited. He has not been appropriate for groups or a family meeting, and has been isolating in his room. On my assessment, the patient reports his mood has improved, "the depression is gone, but I am anxious, really anxious." He endorses sensation of his heart racing and "a general sense of anxiety." He states he is struggled with this for several years, and his anxiety is triggered by social situations, and currently exacerbated by nicotine withdrawal. States he smokes variable amounts of cigarettes, and also vapes and chews. Nicotine gum has been helpful. His auditory hallucinations have decreased but are still present, and he describes his thoughts as racing, "scrambled, I hear myself in the third person." Appetite has improved from admission, he continues to struggle with sleep difficulties. States he has tried diphenhydramine and hydroxyzine without benefit, and that sleep is chronically poor. Discussed the role of substance us e, and he indicates willingness to abstain from substances at least in the immediate discharge period. Discussed the differential diagnosis, and he indicates that he is fearful of having a primary thought disorder. Physical Exam Psychiatric Orientation: alert and cooperative Apperance: appropriately dressed, appropriately groomed and appeared stated age Eye Contact: good eye contact Motor Behavior: steady gait and station and + psychomotor agitation (Restlessness) Speech: normal rate/rhythm/volume of speech Slightly loud at times Affect: + anxious affect "Better." Thought Process: goal directed thought process Thought Content: reality based without delusions Suicidal Thoughts: denies suicidal thoughts Homicidal Thoughts: denies homicidal thoughts Hallucinations: + auditory hallucinations; no visual hallucinations Cognition: recent memory grossly intact, attention grossly intact and language grossly intact Insight: + fair insight Judgement: + fair judgement Vital Signs (Past 24 Hours) Last Vital Signs Temp 36.4 C L 05/04/19 06:36 Pulse 80 05/04/19 06:36 Resp 16 05/04/19 06:36 BP 138/86 05/04/19 06:36 Pulse Ox 99 05/02/19 22:39 Results & Data Current Inpatient Medications Current Inpatient Medications: Current Inpatient Medications Acetaminophen (Tylenol) 650 mg PO Q4H PRN PRN Reason: Headache or Minor Fever Stop: 06/01/19 22:23 Al Hydrox/Mg Hydrox/Simethicone (Maalox) 30 ml PO Q4H PRN PRN Reason: GI Upset Stop: 06/01/19 22:23 Bismuth Subsalicylate (Kaopectate) 15 ml PO PRN PRN PRN Reason: Loose Stool Stop: 06/01/19 22:23 Hydroxyzine HCl (Vistaril) 50 mg PO HSZ PRN PRN Reason: Insomnia Stop: 06/01/19 22:23 Last Admin: 05/04/19 01:37 Dose: 50 mg Documented by: Hydroxyzine HCl (Vistaril) 25 mg PO Q4H PRN PRN Reason: Anxiety Stop: 06/01/19 22:23 Magnesium Hydroxide (Milk Of Magnesia) 30 ml PO DAILY PRN PRN Reason: Constipation Stop: 06/01/19 22:23 Nicotine Polacrilex (Nicorette 2mg) 1 piece MT PRN PRN PRN Reason: cravings Stop: 06/02/19 17:06 Last Admin: 05/03/19 17:44 Dose: 1 piece Documented by: Risperidone (Risperdal) 0.5 mg PO HS TANK Stop: 06/02/19 21:59 Last Admin: 05/03/19 21:01 Dose: 0.5 mg Documented by: Risperidone (Risperdal) 0.5 mg PO BID PRN PRN Reason: agitation or psychosis Stop: 06/02/19 10:29 Last Admin: 05/03/19 16:09 Dose: 0.5 mg Documented by: Sertraline HCl (Zoloft) 50 mg PO QAM TANK Stop: 06/03/19 08:59 Sodium Chloride ([place] Nasal) 1 - 2 sprays NA PRN PRN PRN Reason: Nasal Dryness/Congestion Stop: 06/01/19 22:23 Mental Health & Subst Abuse Tx Therapist Name of Therapist: None - per mother he was suppose to see therapist and "lied about it." Product Safety Head Name of Product Safety Head: Antonella Rainey referred from [facility] Post Discharge Appointments Primary Care Physician Name Of Family Doctor: Dr. Michele (1) Depression Active/Remission status: currently active Depression Type: major depressive disorder Major depression episode severity: severe Major depression recurrence: unspecified whether recurrent Psychotic features: with psychotic features Qualified Code(s): F32.3 - Major depressive disorder, single episode, severe with psychotic features
[2019-05-04] MEDS ORDERED: risperiDONE 1 MG TABLET PO PRN (09:19)
[2019-05-04] MEDS: SERTRALINE HCL 50 MG TABLET PO SCH (09:36)
[2019-05-04] MEDS: NICOTINE POLACRILEX 2 MG GUM MT PRN ×2 (10:12→20:38)
[2019-05-04] MEDS: risperiDONE 1 MG TABLET PO SCH (21:25)
[2019-05-05 08:31] LABS: Glucose Fasting 88 mg/dl (70-99)
[2019-05-05 08:37] LABS: Chol HDL Ratio 3; Cholesterol 123 mg/dl (0-200); HDL Cholesterol 41 mg/dl; LDL Cholesterol Calculated 68 mg/dl; Triglycerides 72 mg/dl (0-150); VLDL Cholesterol 14 mg/dl
[2019-05-05] MEDS: risperiDONE 1 MG TABLET PO SCH ×2 (10:32→22:20)
[2019-05-05] MEDS: SERTRALINE HCL 50 MG TABLET PO SCH (10:32)
[2019-05-05] MEDS: NICOTINE POLACRILEX 2 MG GUM MT PRN ×2 (12:44→21:09)
--- NOTE | 2019-05-05 13:36 | Psychiatric Progress Note ---
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 He also reported binge drinking and regular THC use. He is open to discussion of behavioral health treatment to include therapy medications in combination. He did not endorse evidence of elevated or mixed states, however he does have a father with bipolar disorder and so we will need to monitor as we treat. He has been started on sertraline and risperidone. Pt has been participating actively in group programming, today being the first day of reported resolution of SI and auditory hallucinations/paranoia. Given the severity of his symptoms on admission, it would be ideal to observe for several more days to ensure consistency of improvement prior to considering discharge. Pt also will require outpatient follow-up appointments. Inpatient treatment is medically necessary due to the severity of his symptoms. (1) Depression: 05/03 - presents for combination of anxiety, depression, and psychotic symptoms to include auditory hallucinations ideas of reference, thought insertion and thought broadcasting with belief that he has a superhero and fighting villains. He is distressed by these thoughts and has quite a bit of intact reality testing and yet feels scared that they have worsened over the prior 2 days. He does have concurrent binge drinking I do not believe he is at risk for significant withdrawal but will put him on every shift vitals for sake of completeness. He declines nicotine replacement at this time as he does not smoke consistently. We did discuss his marijuana use that the THC could worsen his thought confusion and we recommended that he abstain. He is open to discussion of behavioral health treatment to include therapy medications in combination. At the time of my seeing him this morning he was not able to reliably report if there were evidence of elevated or mixed states denying obvious episodes however he does have a father with bipolar disorder and so we will need to monitor as we treat. I will start a combination of medications sertraline 25 mg today advancing to 50 mg p.o. daily thereafter to target depression and anxiety that are longstanding. Further I will start Risperdal 0.5 mg p.o. nightly tonight with 0.5 p.o. twice daily as needed agitation or psychosis.I discussed the risks, benefits, side effects and alternatives with the patient today who did seem to be able to appreciate this information and stated he understood the need to watch for activation with the sertraline and that the goal would be to try these medicines and see how he does and if he has side effects that they can be adjusted. He clarified "my dad has had to try many medications until he found what worked and I am willing to do what it takes to feel better." 05/04 - Requiring risperidone prn, still psychotic, restless, and agitated. Will increase risperidone to 1mg bid, and order fasting labs for tomorrow. -May attend groups once able to participate appropriately. -Explore family meeting. 05/05 - Continue risperidone 1mg BID and sertraline 50mg daily - doxepin was added at HS to assist with sleep concerns - Continue to encourage group and recreational programming - Continue to encourage family meeting, patient feels this is unnecessary as he already perceives his parents as supportive - Still need to solidify aftercare, both locally during the semester, but also back home - Fasting glucose and lipid panel results reviewed - all values WNL (2) Anxiety: 05/03 - SSRI as above, groups and therapy, refer for OP care. (3) Cannabis abuse: 05/03 - Discussed marijuana use and that the THC could worsen his thought confusion and we recommended that he abstain. He is open to discussion of behavioral health treatment to include therapy and medications in combination. 05/04 -discussed risks of alcohol and THC use at length, including unmasking psychotic symptoms/primary thought disorder with use of hallucinogens. Reviewed recommendations for abstinence, which patient is stating agreement with. 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 He was admitted on 05/02/19 22:24 on a 201 voluntary commitment. Chief Complaint "I think I am doing great. I want to leave the decisions up to you guys, but from my perspective, I feel ready right now." Review of Systems Notes Constitutional: reports mild improvement in sleep last evening Cardiovascular: denied Respiratory: denied Gastrointestinal: denied Neurological: denied Psychiatric: denies symptoms other than stated above Total of at least 10 systems reviewed, pertinent positives as above and in HPI. Sleep Information Total Hours of Sleep: 5.5 Sleep Comments: awake at 0455. Patient came to nurses station requesting medicaiton to help with sleep. Oriented patient to time. Patient appeared to sleep well through the night. Meal Information Percent Meal Consumed - Breakfast: 100 Percent Meal Consumed - Lunch: 100 Percent Meal Consumed - Dinner: 90 Nutrition Comment: pt. allowed to sleep. Subjective Subjective Patient was seen & assessed and interval progress reviewed with treatment team. Staff reports the patient demonstrated overall improvement in his condition yesterday. He had rated his mood a 9/10 and "better" last evening. It is reported the patient has been sleeping a bit better. As of yesterday, the patient had continued to endorse hallucinations and racing thoughts. His aftercare remains unclear at this time. Patient was seen today to assess progress since admission. He reports feeling "great" and "ready right now." Patient does state "but I want to leave those decisions up to you." When asked what patient feels has improved over the course of his admission, he states "my mood, the things that were happening that were scaring me, pretty much ever ything except my sleep." Patient states that difficulty falling and remaining asleep has been an issue for quite some time. He does admit that he slept well last evening, and hopes the trend continues. Patient does state that his auditory hallucinations have resolved. He states the last time he experienced them was yesterday. We discussed the importance of outpatient psychiatric follow-ups, especially as he requires both local providers and providers back home for winter break. Patient was able to recognize the importance of outpatient follow-up, as well as seeing consistency of improvements prior to considering discharge. Patient also agrees that there is concern for decompensation if his sleep is not improved consistently prior to discharge. At this time, patient is denying suicidal ideation, auditory hallucinations, and paranoia. Patient denies other acute needs or concerns today, and states his plan is to remain active in groups during his time here. Physical Exam Psychiatric Orientation: alert, oriented x 3 and cooperative (And pleasant) Apperance: appropriately dressed, appropriately groomed and appeared stated age Eye Contact: good eye contact Motor Behavior: steady gait and station and no abnormal motor movements Speech: normal rate/rhythm/volume of speech Affect: euthymic affect (Bright, smiling appropriately, appearing energetic) and mood congruent with affect Mood: no depressed mood ("I think I am doing great" and " I feel ready right now") Thought Process: goal directed thought process, clear/coherent thought process and thought association intact Thought Content: reality based without delusions; not paranoid, no hopelessness and no worthlessness Suicidal Thoughts: denies suicidal thoughts and denies suicidal intent Homicidal Thoughts: denies homicidal thoughts Hallucinations: no auditory hallucinations (Denies auditory hallucinations since yesterday) and no visual hallucinations Cognition: attention grossly intact and language grossly intact Insight: + fair insight Judgement: + fair judgement Vital Signs (Past 24 Hours) Last Vital Signs Temp 36.4 C L 05/05/19 06:43 Pulse 62 05/05/19 06:43 Resp 18 05/05/19 06:43 BP 120/79 05/05/19 06:43 Pulse Ox 99 05/02/19 22:39 Results & Data Laboratory Results Laboratory Results - last 24 hr 05/05/19 07:46 Fasting Glucose 88 Triglycerides 72 Cholesterol 123 LDL Cholesterol, Calc 68 VLDL Cholesterol, Calc 14 HDL Cholesterol 41 Cholesterol/HDL Ratio 3 Current Inpatient Medications Current Inpatient Medications: Current Inpatient Medications Acetaminophen (Tylenol) 650 mg PO Q4H PRN PRN Reason: Headache or Minor Fever Stop: 06/01/19 22:23 Al Hydrox/Mg Hydrox/Simethicone (Maalox) 30 ml PO Q4H PRN PRN Reason: GI Upset Stop: 06/01/19 22:23 Bismuth Subsalicylate (Kaopectate) 15 ml PO PRN PRN PRN Reason: Loose Stool Stop: 06/01/19 22:23 Doxepin HCl (Doxepin Hcl) 10 mg PO HS TANK Stop: 06/04/19 21:59 Hydroxyzine HCl (Vistaril) 50 mg PO HSZ PRN PRN Reason: Insomnia Stop: 06/01/19 22:23 Last Admin: 05/04/19 01:37 Dose: 50 mg Documented by: Hydroxyzine HCl (Vistaril) 25 mg PO Q4H PRN PRN Reason: Anxiety Stop: 06/01/19 22:23 Magnesium Hydroxide (Milk Of Magnesia) 30 ml PO DAILY PRN PRN Reason: Constipation Stop: 06/01/19 22:23 Nicotine Polacrilex (Nicorette 2mg) 1 piece MT PRN PRN PRN Reason: cravings Stop: 06/02/19 17:06 Last Admin: 05/05/19 12:44 Dose: 1 piece Documented by: Risperidone (Risperdal) 1 mg PO BID PRN PRN Reason: agitation or psychosis Stop: 06/02/19 10:29 Last Admin: 05/04/19 10:12 Dose: 1 mg Documented by: Risperidone (Risperdal) 1 mg PO BID TANK Stop: 06/03/19 20:59 Last Admin: 05/05/19 10:32 Dose: 1 mg Documented by: Sertraline HCl (Zoloft) 50 mg PO QAM TANK Stop: 06/03/19 08:59 Last Admin: 05/05/19 10:32 Dose: 50 mg Documented by: Sodium Chloride ([place] Nasal) 1 - 2 sprays NA PRN PRN PRN Reason: Nasal Dryness/Congestion Stop: 06/01/19 22:23 Mental Health & Subst Abuse Tx Therapist Name of Therapist: None - per mother he was suppose to see therapist and "lied about it." Metal Molder Name of Metal Molder: Antonella Rainey referred from [facility] Post Discharge Appointments Primary Care Physician Name Of Family Doctor: Dr. Michele (1) Depression Active/Remission status: currently active Depression Type: major depressive disorder Major depression episode severity: severe Major depression recurrence: unspecified whether recurrent Psychotic features: with psychotic features Qualified Code(s): F32.3 - Major depressive disorder, single episode, severe with psychotic features
[2019-05-05 14:01] LABS: Marijuana Quant, GCMS Urine 774 ng/mL (<5)
[2019-05-05] MEDS: DOXEPIN HCL 10 MG CAPSULE PO SCH (22:21)
[2019-05-06] MEDS: SERTRALINE HCL 50 MG TABLET PO SCH (08:56)
[2019-05-06] MEDS: risperiDONE 1 MG TABLET PO SCH ×2 (08:56→22:23)
[2019-05-06] MEDS: NICOTINE POLACRILEX 2 MG GUM MT PRN ×2 (10:16→21:17)
--- NOTE | 2019-05-06 12:42 | Psychiatric Progress Note ---
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 He also reported binge drinking and regular THC use. He is open to discussion of behavioral health treatment to include therapy medications in combination. He did not endorse evidence of elevated or mixed states, however he does have a father with bipolar disorder and so we will need to monitor as we treat. He has been started on sertraline and risperidone. Pt has been participating actively in group programming, today being the first day of reported resolution of SI and auditory hallucinations/paranoia. Given the severity of his symptoms on admission, it would be ideal to observe for several more days to ensure consistency of improvement prior to considering discharge. Pt also will require outpatient follow-up appointments. Inpatient treatment is medically necessary due to the severity of his symptoms. (1) Depression: 05/03 - presents for combination of anxiety, depression, and psychotic symptoms to include auditory hallucinations ideas of reference, thought insertion and thought broadcasting with belief that he has a superhero and fighting villains. He is distressed by these thoughts and has quite a bit of intact reality testing and yet feels scared that they have worsened over the prior 2 days. He does have concurrent binge drinking I do not believe he is at risk for significant withdrawal but will put him on every shift vitals for sake of completeness. He declines nicotine replacement at this time as he does not smoke consistently. We did discuss his marijuana use that the THC could worsen his thought confusion and we recommended that he abstain. He is open to discussion of behavioral health treatment to include therapy medications in combination. At the time of my seeing him this morning he was not able to reliably report if there were evidence of elevated or mixed states denying obvious episodes however he does have a father with bipolar disorder and so we will need to monitor as we treat. I will start a combination of medications sertraline 25 mg today advancing to 50 mg p.o. daily thereafter to target depression and anxiety that are longstanding. Further I will start Risperdal 0.5 mg p.o. nightly tonight with 0.5 p.o. twice daily as needed agitation or psychosis.I discussed the risks, benefits, side effects and alternatives with the patient today who did seem to be able to appreciate this information and stated he understood the need to watch for activation with the sertraline and that the goal would be to try these medicines and see how he does and if he has side effects that they can be adjusted. He clarified "my dad has had to try many medications until he found what worked and I am willing to do what it takes to feel better." 05/04 - Requiring risperidone prn, still psychotic, restless, and agitated. Will increase risperidone to 1mg bid, and order fasting labs for tomorrow. -May attend groups once able to participate appropriately. -Explore family meeting. 05/05 - Continue risperidone 1mg BID and sertraline 50mg daily - doxepin was added at HS to assist with sleep concerns - Continue to encourage group and recreational programming - Continue to encourage family meeting, patient feels this is unnecessary as he already perceives his parents as supportive - Still need to solidify aftercare, both locally during the semester, but also back home - Fasting glucose and lipid panel results reviewed - all values WNL 05/06 - Continue current medication regimen; patient reports improvement in sleep last evening with addition of doxepin - Pt to coordinate transportation with mother, feeling discharge tomorrow is appropriate based on reported improvement in symptoms - Continue to solidify aftercare plan (2) Anxiety: 05/03 - SSRI as above, groups and therapy, refer for OP care. (3) Cannabis abuse: 05/03 - Discussed marijuana use and that the THC could worsen his thought confusion and we recommended that he abstain. He is open to discussion of behavioral health treatment to include therapy and medications in combination. 05/04 -discussed risks of alcohol and THC use at length, including unmasking psychotic symptoms/primary thought disorder with use of hallucinogens. Reviewed recommendations for abstinence, which patient is stating agreement with. Risk Factors Assessment Male: Yes Do You Have Access To A Gun?: No Health Problems: No Mental Health Diagnoses: Yes Substance Use Disorders: Yes Previous Attempt: No Family History of Suicide: Yes Previous Psychiatric Hospitalization: No Hopelessness: Yes Smoker: Yes Protective Factors Assessment [facility] Beliefs: No : No Responsible for Young Children: No Employed: No Supportive Family: Yes Interval History Identifying Information JAY JAY KESSLER is a 19-year-old M who is a sophomore Communications major at [employer] who lives in an off campus apartments with roommates who reports a h/o anxiety and depression who was admitted for reporting distress with Auditory hallucinations from frat brothers, and delusional belief he is a superhero needing to fight villains on top of longstanding depression and anxiety, and passive SI. He was admitted on 05/02/19 22:24 on a 201 voluntary commitment. Chief Complaint "I'm doing really good." Review of Systems Notes Constitutional: reports mild grogginess this morning Cardiovascular: denied Respiratory: denied Gastrointestinal: denied Neurological: denied Psychiatric: denies symptoms other than stated above Total of at least 10 systems reviewed, pertinent positives as above and in HPI. Sleep Information Total Hours of Sleep: 7.25 Sleep Comments: Meal Information Percent Meal Consumed - Breakfast: 100 Percent Meal Consumed - Lunch: 100 Percent Meal Consumed - Dinner: 100 Nutrition Comment: pt. allowed to sleep. Subjective Subjective Patient was seen & assessed and interval progress reviewed with nursing and social work. Staff reports the patient has a phone meeting with his father this afternoon. He rated his mood a 10/10 and "ready to move on" last evening. Patient is aware of concern that aftercare has not yet been solidified. Patient was seen today to assess progress since admission. He states that he is "doing really good", but admits to some mild grogginess today. Patient believes that this is related to trial of doxepin. He states the grogginess is manageable, and is pleased with how the medication worked for him last evening. Patient states "I was knocked out, it Minh-punched me." Patient states that his meeting with his father went well, and that he feels being honest with people about his experiences has been helpful. Patient states his father has mental health diagnoses, and he feels as though his father can both support and understand what it is that he has been going through. Patient updates this provider with current aftercare plan, stating they are continuing to attempt referrals to outpatient psychiatry closer to home. Patient states that he would feel comfortable with discharge tomorrow, and verbalizes that his mother would be able to pick him up. He is agreeable with remaining in the hospital, understanding the concern with discharge until aftercare solidified. He denies suicidal ideation, continued auditory hallucinations, and denies other bizarre thought processes. Patient denies other needs or concerns today. Physical Exam Psychiatric Orientation: alert, oriented x 3 and cooperative (And pleasant) Apperance: appropriately dressed (Casually, and longsleeved T-shirt and jeans), appropriately groomed and appeared stated age Eye Contact: good eye contact Motor Behavior: steady gait and station and no abnormal motor movements Speech: normal rate/rhythm/volume of speech Affect: euthymic affect and mood congruent with affect Mood: no depressed mood ("I feel really good") Thought Process: goal directed thought process, clear/coherent thought process and thought association intact Thought Content: reality based without delusions; not paranoid, no hopelessness and no worthlessness Suicidal Thoughts: denies suicidal thoughts and denies suicidal intent Homicidal Thoughts: denies homicidal thoughts Hallucinations: no auditory hallucinations and no visual hallucinations Cognition: attention grossly intact and language grossly intact Insight: good insight Judgement: good judgement Vital Signs (Past 24 Hours) Last Vital Signs Temp 36.5 C 05/06/19 06:33 Pulse 51 L 05/06/19 06:34 Resp 18 05/06/19 06:33 BP 120/75 05/06/19 06:34 Pulse Ox 99 05/02/19 22:39 Results & Data Laboratory Results Laboratory Results - last 24 hr 05/02/19 18:20 U Marijuana THC Carboxy 774 H Drug Screen Comment SEE NOTE Current Inpatient Medications Current Inpatient Medications: Current Inpatient Medications Acetaminophen (Tylenol) 650 mg PO Q4H PRN PRN Reason: Headache or Minor Fever Stop: 06/01/19 22:23 Al Hydrox/Mg Hydrox/Simethicone (Maalox) 30 ml PO Q4H PRN PRN Reason: GI Upset Stop: 06/01/19 22:23 Bismuth Subsalicylate (Kaopectate) 15 ml PO PRN PRN PRN Reason: Loose Stool Stop: 06/01/19 22:23 Doxepin HCl (Doxepin Hcl) 10 mg PO HS TANK Stop: 06/04/19 21:59 Last Admin: 05/05/19 22:21 Dose: 10 mg Documented by: Hydroxyzine HCl (Vistaril) 50 mg PO HSZ PRN PRN Reason: Insomnia Stop: 06/01/19 22:23 Last Admin: 05/04/19 01:37 Dose: 50 mg Documented by: Hydroxyzine HCl (Vistaril) 25 mg PO Q4H PRN PRN Reason: Anxiety Stop: 06/01/19 22:23 Magnesium Hydroxide (Milk Of Magnesia) 30 ml PO DAILY PRN PRN Reason: Constipation Stop: 06/01/19 22:23 Nicotine Polacrilex (Nicorette 2mg) 1 piece MT PRN PRN PRN Reason: cravings Stop: 06/02/19 17:06 Last Admin: 05/06/19 10:16 Dose: 1 piece Documented by: Risperidone (Risperdal) 1 mg PO BID PRN PRN Reason: agitation or psychosis Stop: 06/02/19 10:29 Last Admin: 05/04/19 10:12 Dose: 1 mg Documented by: Risperidone (Risperdal) 1 mg PO BID TANK Stop: 06/03/19 20:59 Last Admin: 05/06/19 08:56 Dose: 1 mg Documented by: Sertraline HCl (Zoloft) 50 mg PO QAM TANK Stop: 06/03/19 08:59 Last Admin: 05/06/19 08:56 Dose: 50 mg Documented by: Sodium Chloride ([place] Nasal) 1 - 2 sprays NA PRN PRN PRN Reason: Nasal Dryness/Congestion Stop: 06/01/19 22:23 Mental Health & Subst Abuse Tx Psychiatrist Name of Psychiatrist: [facility] Psychiatrist's Psychiatric Appointment Comment: Please follow up the week of May 26 - May 30 Therapist Name of Therapist: Nneka Vogt Therapist's Date of Therapist Appointment: 05/23/19 Time of Therapist Appointment: 8:30 a.m. Therapy Appointment Comment: [address] [facility], [address], [place] [employer] Name of Primer Powder Blender Wet: Antonella Rainey referred from [facility] Post Discharge Appointments Primary Care Physician Name Of Family Doctor: Dr. [facility] Date of Appointment with PCP: 05/12/19 Time of Appointment with PCP: 10:20 AM Provider Appointment Comment: Alia Ortiz [address] [address], [place] [address] Contact Information Discharge Discharge Address: [address] [place] [address], [address], [place] [address] (1) Depression Active/Remission status: currently active Depression Type: major depressive disorder Major depression episode severity: severe Major depression recurrence: unspecified whether recurrent Psychotic features: with psychotic features Qualified Code(s): F32.3 - Major depressive disorder, single episode, severe with psychotic features
[2019-05-06] MEDS: DOXEPIN HCL 10 MG CAPSULE PO SCH (22:25)
[2019-05-07] MEDS: risperiDONE 1 MG TABLET PO SCH (09:03)
[2019-05-07] MEDS: SERTRALINE HCL 50 MG TABLET PO SCH (09:03)
--- NOTE | 2019-05-07 09:33 | Discharge Summary ---
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 He presented to counseling and psychological services on May 02, 2018 reporting both auditory hallucinations and delusional belief prompting the recommendation that he come to the emergency room and he was agreeable after evaluation in the ER for admission. This history is taken collectively from the documented ER history, case management history, discussion with behavioral health nursing and interview with the patient today on the inpatient unit. He states he has a lifelong history of anxiety and depression that I "never opened up to anybody about." He states he has significant social anxiety and when he is talking with people his heart will flutter he will flush have sweating and a sense of impending doom and this is been going on for some time. 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 However he endured social interactions with great distress. He states he has always been somebody to worry and ask a lot of questions and seek reassurance that he is doing things right. He states he worries about future and feels his "life collapsed" recently. He has difficulty being sustained about what he means but agrees it has to do with the symptoms reported below. In addition to this longstanding anxiety he states he began to have depression probably around the first semester of his college career which was fall 2017. He states that he did poorly in his classes and was just "enjoying things such as videogames going to parties and doing the things he liked." He did very poorly his first semester and believes he started to feel lower. He came back to [employer] in spring 2018 and presented to counseling and psychological services for evaluation of ADHD. He was referred to testing and saw a psychiatrist (name unknown possibly Dr. Veliz) in the [place] area and was diagnosed instead with anxiety and depression. He states he was recommended to follow-up with a therapist with the she did for a few sessions "but it was not helpful, probably because I did not open up." He states he returned to [employer] ate Fall 2018 and pledged to fraternity and states "it was the best thing I ever did." He states however though he is also simultaneously has been depressed. He reports over the last year and a half difficulty falling asleep at night not able to fall asleep will often watch 1-2 movies and fell asleep for some time in the late morning and then have trouble rising. He cannot quantify the degree of sleep but states that 6 hours or less. He denies being energized or having grandiosity or flight of ideas or loosening of associations he denies being more social or more talkative or having impulsive behavior such as increased sexuality or increased spending. He does state that at times he feels tired and poor concentration low appetite, hopeless helpless and worthless and has had passive suicidal ideations such as "what would people think if I was ." He notes over the last semester he has lost significant weight, and that in thelast 2 weeks he has not been doing his laundry, and feels even more disorganized that his usual self. He states during his college career he has been binge drinking somewhere between 1-2 nights on an average week up to 3 nights now that he is joined a fraternity where he will binge drink 8+ beers per occasion and has blacked out quite commonly. He does not have any legal or social ramifications that he knows of but today is penitent stating "I know I does not help me." He additionally endorses marijuana use starting in high school and increasing to daily use while in college. His mother found out in fall 2017 and he stopped MJ for 4 months and then resumed. He has been smoking multiple times a day over the last month prior to admission "it is the only thing that helps me." In discussing his thoughts he reports that in the last few weeks he has heard some mumbling which he thoughts was outside and has been vaguely aware of what he now realizes are voices in his mind. In the last 2 days these have escalated to feeling like his roommates and fraternity brothers may be hearing his thoughts and that he may know their thoughts. They have been saying things like "defeat the super villain" and this makes him feel anxious. He states that he believes his roommate may have said in a whisper to kill himself. And yesterday believed that he was a superhero fighting villians and was told to go to a specific room in the fraternity and then was scared realizing on some level that this was not true. He presented to [facility] for help. He states last night he thought he heard the nurse tell another nurse that he is a superhero and "how will we tell him," and yet is able to reality test that "I know that these are not true thoughts" denying beleif that he is a superhero. He has some "whispers" today of AH, but denies other IOR, TI/TB or command hallucinations. He is voluntary to take medications, release prior records and even asserts that perhaps getting further medication history from his father (who has bipolar) may help the patient and staff know what best to use in treatment. He denies SI/HI, intention or plan here on the unit but states he still feels scared and distressed that this has happened to him and he is worried about what this maight mean regarding diagnosis. Remainder of Psych ROS: denies violence toward self or others now or in the past denies s/sx of OCD, agoraphobia. denies h/o trauma or s/sx of PTSD denies s/sx of ODD, or CD, did have discplinary issues in school for disruptive behavior in pre-school and onward e.g. talking out of turn, and reports lonstanding being disorganized with his things which frustrates his relationship wtih his mother who is highly organized he denies s/sx of eating disorder behavior. Physical Exam Vital Signs (Past 24 Hours) Last Vital Signs Temp 36.5 C 05/07/19 06:33 Pulse 61 05/07/19 06:34 Resp 18 05/07/19 06:33 BP 123/78 05/07/19 06:34 Pulse Ox 99 05/02/19 22:39 Principal Diagnosis Psychosis not otherwise specified (psychotic depression versus bipolar versus primary thought disorder versus substance-induced psychosis) Depression Cannabis use disorder Alcohol use disorder Psychiatric Data The patient was hospitalized for 5 days. He presented with acute psychosis, including auditory hallucinations, ideas of reference, thought insertion, thought broadcasting, and a belief that he is a superhero fighting villains. He also endorsed depressive and anxiety symptoms, as well as binge drinking and marijuana use. Drug screen was positive for THC. He was started on sertraline to target anxiety and depressive symptoms, and risperidone to target psychotic symptoms. He reported rapid improvement in depressive symptoms, and over the next few days, anxiety and psychotic symptoms improved as well. He reported chronic sleep difficulties for which he had previously taken diphenhydramine without benefit, and hydroxyzine was poorly effective in the hospital, so he was started on doxepin 10 mg at bedtime which was beneficial. Multiple discussions were held about the differential diagnosis and things that he could do to maintain stability, primarily avoiding recreational drugs, alcohol, maintaining good sleep hygiene and daily structure/schedule. He agreed to abstain from substance use and to continue with medications and outpatient treatment. A family meeting was held with his father on 05/06/2019, and he shared many suggestions of ways the patient could improve his mental health. The patient discussed his tendency to hide his struggles from his family and friends, and conclusion that that had not been helpful and that in the future he would be more open and would try to address things sooner. He and father confirms he does not have access to weapons, and we are in agreement with the discharge plan for the patient to return to his apartment in [place] for 1 to 2 days before going home to [place] for winter. He was able to attend to participate appropriately in groups, interact appropriately with staff and peers, reported resolution of hallucinations and delusional thoughts, and was performing ADLs independently and maintaining good hygiene. He was noted to be eating and sleeping well, taking medications as prescribed, and was calm and cooperative. Day of Discharge Assessment Staff report the patient is voicing readiness for discharge. On my assessment, he states that his mood is "great," feels he has had a "huge improvement" since admission. He denies mood swings, irritability, depressive symptoms, and anxiety. He denies thoughts of harming himself or others, hallucinations, paranoia, ideas of reference, or delusional thinking. He feels his thoughts have cleared and that he is at baseline. He states he plans to avoid all drugs and alcohol in the future, to continue his medications, and to work on maintaining stability and outpatient treatment. He is looking forward to going home for the winter break, and will see his PCP next week while there. He is able to review his discharge plan for when he returns to campus for the spring. He feels supported by his family, and denies any safety concerns with discharge. He plans to stay at his apartment [facility] and then take a bus back home tomorrow. Transition of Care Transition Of Care Record: was reviewed with the patient Advance Directives Advance Directives Information Provided: Yes Advance Directives: No Mental Health Advance Directive: No Advance Directives on File: No Living Will: No Power of Travel Attendants: No Advance Directives Reason:: Declines as Mental Health Visit. Risk Factors Assessment Risk factors were mitigated by admission to the inpatient unit, use of medications to target sleep, mood, anxiety, and psychotic symptoms, education about his diagnoses and the recommended treatment, education about the risks of ongoing substance abuse and recommendations for abstinence, involving him in groups and therapy, family meeting with father, referring him for outpatient treatment, and working on healthy coping skills and a discharge safety plan. He has demonstrated improvement in presenting symptoms, as psychosis, depression, and anxiety have all resolved. He is eating and sleeping well, taking medications without difficulty, and stating willingness to follow-up with outpatient treatment. He is requesting discharge, and as he is no longer at acute risk of harm to himself or others, he can be managed as an outpatient at this time. Male: Yes Do You Have Access To A Gun?: No Health Problems: No Mental Health Diagnoses: Yes Substance Use Disorders: Yes Previous Attempt: No Family History of Suicide: Yes Previous Psychiatric Hospitalization: No Hopelessness: Yes Smoker: Yes Protective Factors Assessment Congregation Beliefs: No : No Responsible for Young Children: No Employed: No Supportive Family: Yes Tobacco Cessation at Discharge Tobacco Cessation Medication Prescribed at Discharge: Not Applicable/Non-Smoker Total Time Total Time Spent: Greater Than 30 Minutes Total Time Includes: Examination of the patient, Discharge Planning and Medication Reconciliation Discharge Data Lab Results 05/02/19 05/02/19 05/02/19 18:20 18:20 18:20 WBC RBC Hgb Hct MCV MCH MCHC RDW Std Deviation RDW Coeff of Yara Plt Count MPV Immature Gran % (Auto) Neut % (Auto) Lymph % (Auto) Archer % (Auto) Eos % (Auto) Baso % (Auto) Immature Gran # (Auto) Neut # (Auto) Lymph # (Auto) Archer # (Auto) Eos # (Auto) Baso # (Auto) Sodium Potassium Chloride Carbon Dioxide Anion Gap BUN Creatinine Est Cr Clr Drug Dosing Est GFR ( Amer) Est GFR (Non-Af Amer) BUN/Creatinine Ratio Glucose Fasting Glucose Calcium Total Bilirubin AST ALT Alkaline Phosphatase Total Protein Albumin Globulin Albumin/Globulin Ratio Triglycerides Cholesterol LDL Cholesterol, Calc VLDL Cholesterol, Calc HDL Cholesterol Cholesterol/HDL Ratio TSH Urine Color Dark Yellow Urine Appearance Clear Urine pH 5.5 Ur Specific [place] 1.027 Urine Protein Negative Urine Glucose (UA) Negative Urine Ketones 2+ H Urine Blood Negative Urine Nitrite Negative Urine Bilirubin Negative Urine Urobilinogen Negative Ur Leukocyte Esterase Trace H Urine WBC (Auto) 1-5 Urine RBC (Auto) 0-4 U Hyaline Cast (Auto) 1-5 U Epithel Cells (Auto) 0-5 Urine Bacteria (Auto) Negative Salicylates Urine Opiates Screen Neg Ur Methadone, Qual Neg Acetaminophen Urine Barbiturates Neg Ur Phencyclidine (PCP) Neg U Amphetamin/Meth Scrn Neg MDMA (Ecstasy) Screen Neg U Benzodiazepines Scrn Neg Ur Cocaine Metabolite Neg U Marijuana (THC) Screen Pos H U Marijuana THC Carboxy 774 H Drug Screen Comment SEE NOTE Ethyl Alcohol mg/dL 05/02/19 05/02/19 05/02/19 19:29 19:29 19:29 WBC 9.37 RBC 4.98 Hgb 15.6 Hct 45.1 MCV 90.6 MCH 31.3 MCHC 34.6 RDW Std Deviation 43.1 RDW Coeff of Yara 13.1 Plt Count 353 MPV 8.7 Immature Gran % (Auto) 0.2 Neut % (Auto) 78.9 Lymph % (Auto) 14.8 Archer % (Auto) 5.7 Eos % (Auto) 0.2 Baso % (Auto) 0.2 Immature Gran # (Auto) 0.02 Neut # (Auto) 7.39 H Lymph # (Auto) 1.39 Archer # (Auto) 0.53 Eos # (Auto) 0.02 Baso # (Auto) 0.02 Sodium 137 Potassium 3.9 Chloride 104 Carbon Dioxide 26 Anion Gap 7.0 BUN 16 Creatinine 1.07 Est Cr Clr Drug Dosing 102.5 Est GFR ( Amer) 115.2 Est GFR (Non-Af Amer) 99.4 BUN/Creatinine Ratio 15.3 Glucose 94 Fasting Glucose Calcium 10.0 Total Bilirubin 0.9 AST 21 ALT 37 Alkaline Phosphatase 78 Total Protein 8.7 H Albumin 4.5 Globulin 4.2 H Albumin/Globulin Ratio 1.1 Triglycerides Cholesterol LDL Cholesterol, Calc VLDL Cholesterol, Calc HDL Cholesterol Cholesterol/HDL Ratio TSH 0.789 Urine Color Urine Appearance Urine pH Ur Specific [place] Urine Protein Urine Glucose (UA) Urine Ketones Urine Blood Urine Nitrite Urine Bilirubin Urine Urobilinogen Ur Leukocyte Esterase Urine WBC (Auto) Urine RBC (Auto) U Hyaline Cast (Auto) U Epithel Cells (Auto) Urine Bacteria (Auto) Salicylates < 1.7 L Urine Opiates Screen Ur Methadone, Qual Acetaminophen < 2 L Urine Barbiturates Ur Phencyclidine (PCP) U Amphetamin/Meth Scrn MDMA (Ecstasy) Screen U Benzodiazepines Scrn Ur Cocaine Metabolite U Marijuana (THC) Screen U Marijuana THC Carboxy Drug Screen Comment Ethyl Alcohol mg/dL 05/02/19 05/05/19 19:29 07:46 WBC RBC Hgb Hct MCV MCH MCHC RDW Std Deviation RDW Coeff of Yara Plt Count MPV Immature Gran % (Auto) Neut % (Auto) Lymph % (Auto) Archer % (Auto) Eos % (Auto) Baso % (Auto) Immature Gran # (Auto) Neut # (Auto) Lymph # (Auto) Archer # (Auto) Eos # (Auto) Baso # (Auto) Sodium Potassium Chloride Carbon Dioxide Anion Gap BUN Creatinine Est Cr Clr Drug Dosing Est GFR ( Amer) Est GFR (Non-Af Amer) BUN/Creatinine Ratio Glucose Fasting Glucose 88 Calcium Total Bilirubin AST ALT Alkaline Phosphatase Total Protein Albumin Globulin Albumin/Globulin Ratio Triglycerides 72 Cholesterol 123 LDL Cholesterol, Calc 68 VLDL Cholesterol, Calc 14 HDL Cholesterol 41 Cholesterol/HDL Ratio 3 TSH Urine Color Urine Appearance Urine pH Ur Specific [place] Urine Protein Urine Glucose (UA) Urine Ketones Urine Blood Urine Nitrite Urine Bilirubin Urine Urobilinogen Ur Leukocyte Esterase Urine WBC (Auto) Urine RBC (Auto) U Hyaline Cast (Auto) U Epithel Cells (Auto) Urine Bacteria (Auto) Salicylates Urine Opiates Screen Ur Methadone, Qual Acetaminophen Urine Barbiturates Ur Phencyclidine (PCP) U Amphetamin/Meth Scrn MDMA (Ecstasy) Screen U Benzodiazepines Scrn Ur Cocaine Metabolite U Marijuana (THC) Screen U Marijuana THC Carboxy Drug Screen Comment Ethyl Alcohol mg/dL < 3.0 Hospital Course (1) Psychosis: 05/03 - presents for combination of anxiety, depression, and psychotic symptoms to include auditory hallucinations ideas of reference, thought insertion and thought broadcasting with belief that he has a superhero and fighting villains. He is distressed by these thoughts and has quite a bit of intact reality testing and yet feels scared that they have worsened over the prior 2 days. He does have concurrent binge drinking I do not believe he is at risk for significant withdrawal but will put him on every shift vitals for sake of completeness. He declines nicotine replacement at this time as he does not smoke consistently. We did discuss his marijuana use that the THC could worsen his thought confusion and we recommended that he abstain. He is open to discussion of behavioral health treatment to include therapy medications in combination. At the time of my seeing him this morning he was not able to reliably report if there were evidence of elevated or mixed states denying obvious episodes however he does have a father with bipolar disorder and so we will need to monitor as we treat. I will start a combination of medications sertraline 25 mg today advancing to 50 mg p.o. daily thereafter to target depression and anxiety that are longstanding. Further I will start Risperdal 0.5 mg p.o. nightly tonight with 0.5 p.o. twice daily as needed agitation or psychosis.I discussed the risks, benefits, side effects and alternatives with the patient today who did seem to be able to appreciate this information and stated he understood the need to watch for activation with the sertraline and that the goal would be to try these medicines and see how he does and if he has side effects that they can be adjusted. He clarified "my dad has had to try many medications until he found what worked and I am willing to do what it takes to feel better." 05/04 - Requiring risperidone prn, still psychotic, restless, and agitated. Will increase risperidone to 1mg bid, and order fasting labs for tomorrow. -May attend groups once able to participate appropriately. -Explore family meeting. 05/05 - Continue risperidone 1mg BID and sertraline 50mg daily - doxepin was added at HS to assist with sleep concerns - Continue to encourage group and recreational programming - Continue to encourage family meeting, patient feels this is unnecessary as he already perceives his parents as supportive - Still need to solidify aftercare, both locally during the semester, but also back home - Fasting glucose and lipid panel results reviewed - all values WNL 05/06 - Continue current medication regimen; patient reports improvement in sleep last evening with addition of doxepin - Pt to coordinate transportation with mother, feeling discharge tomorrow is appropriate based on reported improvement in symptoms - Continue to solidify aftercare plan 05/08 -Differential includes major depression with psychosis, primary thought disorder, bipolar disorder, and substance-induced psychosis. -Continue risperidone 1 mg twice daily. -Reviewed things that he can do to promote ongoing stability and prevent relapse, including cessation of recreational substance use, ensuring good sleep and use of sleep medication if sleep deteriorates, daily structure/regular schedule, and ongoing outpatient treatment. -Outpatient treatment arranged to include bridge appointment with PCP, Dr. Doyle, [place] on 05[place]2019. He has been referred to [facility] for therapy and has an intake 05/30/2019. At that time, they will determine if he can see their psychiatrist, and if he is unable to, [facility] has agreed to see him. He is aware of and able to reiterate this discharge plan. (2) Depression: 05/07 -mood improved; continue sertraline 50 mg daily and doxepin 10 mg at bedtime as needed insomnia. (3) Cannabis abuse: 05/03 -Discussed marijuana use and that the THC could worsen his thought confusion and we recommended that he abstain. He is open to discussion of behavioral health treatment to include therapy and medications in combination. 05/04 -discussed risks of alcohol and THC use at length, including unmasking psychotic symptoms/primary thought disorder with use of hallucinogens. Reviewed recommendations for abstinence, which patient is stating agreement with. 05/07 -patient expressing good insight into the risks of hallucinogen use, and states he is in agreement with abstinence. (4) Alcohol abuse: 05/07 -patient scored a 13 on the audit on admission. Once his psychosis improved and he was able to engage in treatment, he has been provided with psychoeducation about the risks of ongoing alcohol use, including worsening mood, drug drug interactions, organ damage, self injury, cognitive impairment, increased risk of harm to himself, legal problems, and addiction/withdrawal. -He participated in treatment and was on recovery protocol here. He has demonstrated improved insight and is voicing a willingness to abstain from alcohol for the foreseeable future. Brief intervention was offered and accepted Intervention was greater than 5 min in length. Brief interventions include: 1. Assess Readiness to Quit, 2. Advise: Help Patient to Reduce or Abstain from Alcohol, 3. Agree: Set Specific, Feasible Goals, 4. Assist: Anticipate barriers, Problem-Solving Solutions. Social work to 5. Arrange: Referrals to appropriate treatment. Summary of intervention: The patient is in the preparation stage with regards to transtheoretical model of change. The patient is advised to decrease alcohol consumption due to depressant effects and risk of interactions with prescription medications. The patient agreed to abstain from alcohol, has been referred for substance abuse treatment, and will be provided with recovery materials to continue to education self on how to cope with their condition without drinking. (5) Anxiety: 05/03 -SSRI as above, groups and therapy, refer for OP care. 05/07 -patient reports anxiety has improved significantly, but will benefit from outpatient therapy as indicates several years of anxiety in social situations that is functionally impairing. Mental Health & Subst Abuse Tx Psychiatrist Name of Psychiatrist: [facility] Psychiatrist's Psychiatric Appointment Comment: Please follow up the week of May 26 - May 30 Therapist Name of Therapist: Nneka Vogt Therapist's Date of Therapist Appointment: 05/30/19 Time of Therapist Appointment: 8:30 a.m. Therapy Appointment Comment: [address] [facility], [address], [place] Chartered Accountant Name of Chartered Accountant: [facility] Emiliano Salazar Phone Number for Chartered Accountant: [phone] Date of Appointment with Chartered Accountant: 05/08/19 Time of Appointment with Chartered Accountant: 1:30 p.m. Case Management Appointment Comment: Please call in for a phone session Post Discharge Appointments Primary Care Physician Name Of Family Doctor: Dr. Doyle Primary Care Date of Appointment with PCP: 05/12/19 Time of Appointment with PCP: 10:20 AM Provider Appointment Comment: [facility] [address] [address], [place] [address] Smoking Cessation Counseling Tobacco Cessation Medication Prescribed at Discharge: Not Applicable/Non-Smoker Contact Information Discharge Discharge Address: [address] [place] [address], [address], [place] [address] Discharge Plan Discharge Items Patient Disposition: Home - Self-Care Reason For Visit: PSYCHOSIS NOS Discharge Diagnosis: Psychosis not otherwise specified Major depressive disorder Cannabis use Activity: Per Instructions section Non-emergency contact: Primary Care Provider, Psychiatrist and Therapist Call non-emergency contact if: you have any medication questions and your symptoms worsen Follow-up/Referrals: [facility] [Primary Care Provider] - Diet: Regular Addtl Attending Provider Instructions: SPECIAL CARE INSTRUCTIONS: 1. Follow through with your scheduled aftercare appointments. If unable to keep an appointment, please call to reschedule. 2. Take your medication only as prescribed. Medication should not be changed or stopped without the approval of your doctor. In the event of worsening symptoms or concerns about side effects, contact your doctor immediately. 3. Utilize new healthy coping skills, anger management skills, and stress management skills learned during your hospitalization. Journal feelings and process them with a support person. Identify stressors or situations that may result in relapse, deterioration or inappropriate behaviors and develop a plan to deal with those issues. 4. If your coping skills are ineffective and you are in crisis, contact your outpatient providers for direction. If unable to reach your providers, please call the CAN HELP LINE AT or go to the closest Emergency Room. 5. Avoid alcohol and un-prescribed drugs. 6. You have been provided with the Mental Health Advance Directives Pamphlet for your review. AFTERCARE APPOINTMENTS: * Please call your insurance company prior to your scheduled appointment to confirm your aftercare providers are covered. Take your insurance information to your appointments. WHO TO CALL AND WHEN: Medical Emergencies: For questions or emergencies related to your hospital stay, please contact the Inpatient Behavioral Health Unit at [phone]. A hose inspector is on-call 11/12 for the Behavioral Health Unit for emergencies At any time you feel your situation is an emergency, you may also call 911 immediately. Your Doctors Instructions noted above were prepared by provider Tianna Tavarez MD. Stand-Alone Forms: My [facility] Money, Smoking Cessation, Suicide Prevention Resources Medications and DC Order Prescriptions: New doxepin 10 mg Capsule 10 mg PO HS PRN (Reason: insomnia) Qty: 15 RF: 0 sertraline 50 mg Tablet 50 mg PO QAM Qty: 30 RF: 0 risperidone 1 mg Tablet 1 mg PO BID Qty: 60 RF: 0 Discontinued Cbd Oil 1 applic topical DAILY RF: 0 Discharge Orders: Discharge Order (Routine); Ordered 05/07/19 Ordered By: Tianna Tavarez Admission Data Admit Date/Time: 05/02/19 22:24 Attending Provider: Tianna Tavarez Admit Provider: Sigifredo Couch Primary Care Provider: [facility] Coding Level of Care Code 10614 D/C day mgmt > 30 min Diagnoses Psychosis F29 Depression F32.3 Active/Remission status: currently active Depression Type: major depressive disorder Major depression episode severity: severe Major depression recurrence: unspecified whether recurrent Psychotic features: with psychotic features Cannabis abuse F12.10 Alcohol abuse F10.10 Anxiety F41.9
== END 2019-05-07 10:51 | disposition home or self-care (01) | DRG 885 ==
LOC: ED 17:54 → 3S 22:24 → SUATTDRO 22:24 → 3S 22:47